=== PATIENT | female | born 1980 | race Two or more races ===

== ENCOUNTER → 2018-06-15 | Outpatient (CLI) | payer BC | LOC: FLACT 10:06 | PROVIDERS: ATTEND Obstetrics & Gynecology | DX: Z39.1 Encounter for care and examination of lactating mother (principal) | CPT/HCPCS: G0463 ==

== ENCOUNTER → 2018-07-13 | Outpatient (CLI) | payer BC | LOC: FLACT 10:41 | PROVIDERS: ATTEND Obstetrics & Gynecology | DX: Z39.1 Encounter for care and examination of lactating mother (principal) | CPT/HCPCS: G0463 ==